=== PATIENT | female | born 1990 | race Two or more races ===

== ENCOUNTER 2019-07-24 10:23 | Inpatient (IN) | payer MEDICARE, OTHER ==
[~2019-07-24] VITALS: Ht 165.1 cm; Wt 63.5 kg
[2019-07-24] MEDS ORDERED: MYCO500T PO (10:44)
[2019-07-24] MEDS ORDERED: CHOL200026 PO (10:44)
[2019-07-24 11:17] LABS: CARBON DIOXIDE 26 mmol/L (21-32); CHLORIDE 100 mmol/L (98-107); CREATININE 0.8 mg/dL (0.6-1.3); GLUCOSE 89 mg/dL (74-106); POTASSIUM 3.7 mmol/L (3.5-5.1); UREA NITROGEN, BLOOD 7 mg/dL (7-18)
[2019-07-24 11:18] LABS: BASOPHILS % (AUTO) 0.2 % (0.0-2.0); ETHANOL < 3 MG/DL (0-0); HEMATOCRIT 42.9 % (31.2-41.9); HEMOGLOBIN 13.9 g/dL (10.9-14.3); LYMPHOCYTES % (AUTO) 12.8 % (20.5-51.5); MEAN CORPUSCULAR HEMOGLOBIN 27.2 uug (24.7-32.8); MEAN CORPUSCULAR HGB CONC 33 g/dL (32.3-35.6); MEAN CORPUSCULAR VOLUME 83.7 fL (75.5-95.3); MONOCYTES # (AUTO) 0.8 K/uL (2.0-10.0); MONOCYTES % (AUTO) 9.5 % (0.0-11.0); NEUTROPHILS # (AUTO) 6.3 K/uL (1.8-8.9); NEUTROPHILS % (AUTO) 77.5 % (38.5-71.5); PLATELET COUNT (AUTO) 226 K/uL (179-408); RED BLOOD CELL COUNT(AUTO) 5.13 MIL/uL (3.63-4.92); WHITE BLOOD COUNT (AUTO) 8.1 K/uL (3.8-11.8)
--- NOTE | 2019-07-24 11:20 | NUR ---
PT IS DEAF & MUTE, AND PRESENTS W/ AMS. PER PT'S PARENTS, PT'S BASELINE MENTATION IS A/OX4, BUT STATES THAT SHE BEGAN TO BE CONFUSED SINCE YESTERDAY AND "WANDERING". PT PRESENTS W/ BRUISING TO THE L WRIST AND FACIAL GRIMACING UPON MOVEMENT OF THE LUE. PT IS ABLE TO SELF-AMBULATE, BUT IS NOTED TO BE WALKING W/ A LIMP ON THE L SIDE AND BRACING HER LUE. VSS.
[2019-07-24 11:23] LABS: ALANINE AMINOTRANSFERASE 11 U/L (14-59); ALKALINE PHOSPHATASE 75 U/L (50-136); ASPARTATE AMINOTRANSFERASE 16 U/L (15-37); BILIRUBIN,DIRECT 0.2 mg/dL (0.0-0.2); TOTAL PROTEIN, SERUM 8.5 g/dL (6.4-8.2)
[2019-07-24 11:25] LABS: ACETAMINOPHEN < 2.0 ug/mL (10-30)
[2019-07-24 11:30] LABS: THYROID STIMULATING HORMONE 1.267 mIU/mL (0.358-3.740)
--- NOTE | 2019-07-24 11:38 | NUR ---
PT TAKEN TO RADIOLOGY FOR CT SCAN.
--- NOTE | 2019-07-24 11:56 | NUR ---
pt back in ER from radiology.
--- NOTE | 2019-07-24 12:12 | NUR ---
pt removed IV access, catheter intact. ER notified. Unable to obtaine urine sample due to lack of pt's cooperation. ER aware.
--- NOTE | 2019-07-24 12:15 | NUR ---
paged [facility] for panel call. awaiting callback. attempt 1.
--- NOTE | 2019-07-24 12:22 | NUR ---
Pt wandering out of room, refusing to walk back to her room. Pt assisted back to room. 1:1 observation for safety precaution.
--- NOTE | 2019-07-24 12:25 | NUR ---
ER MD speaking w/ Rishabh, HARPER, re pt's admission.
--- NOTE | 2019-07-24 14:06 | NUR ---
PT REFUSING VITAL SIGN CHECK. NAD NOTED. PT IS RESTING IN BED.
--- NOTE | 2019-07-24 14:26 | NUR ---
ADMITTING REPORT GIVEN TO LETICIA GUTHRIE.
--- NOTE | 2019-07-24 14:35 | NUR ---
Pt. admitted to [facility], under care of [facility] LI. Belongs List completed
--- NOTE | 2019-07-24 15:40 | NUR ---
28 YEAR OLD FEMALE RECEIVED FROM ER VIA GURNEY TO ROOM 309 FOR AMS .PT IS NOT TALKING AND NOT GIVING ANS TO ANY QUESTION , MADE AWARE,CALL LIGHT WITH IN REACH
--- NOTE | 2019-07-24 17:00 | NUR ---
pt is standing on the night stand and jumped to the bed after patient was repeatedly asked in iraqi and mongolian to come down. Pt proceded to point to the white board in her room and told staff that she was "the devil". patient began to point to the oxygen and vaccum valves and the smoke alarm and said that we were "watching her and recording her". pt refused to comply to sit down calmly on bed after repeatedly telling her to come down. Charge nurse called security to try to convince patient to sit on bed. Pt began to lash out and started screaming and spitting and scratching staff. It required 10 staff members to restrain patient with 4 point restrains to hospital bed and a asha restraint vest in order to restrain patient to bed. House nursing supervisor heat treating was notified and alerted to patients behavior and combativeness. pt is still combative and kicking and spitting at staff. staff had to remove all pillows, sheets, call light, remote control, and headboard from the bed in order to eliminate any possibility patient could hurt herself
[2019-07-24] MEDS ORDERED: LORAZEPAM 2 MG/1 ML VIAL IM ONE (17:30)
[2019-07-24] MEDS ORDERED: diphenhydrAMINE 50 MG/1 ML VIAL IM ONE (17:30)
[2019-07-24] MEDS ORDERED: HALOPERIDOL LACTATE 5 MG/1 ML VIAL IM ONE ×2 (17:30→21:00)
--- NOTE | 2019-07-24 18:00 | NUR ---
per md order pt was given ativan 2mg, haleperidol 5 mg, and benadryl 50 mg IM given at 1800. pt was still acting out and combative at this time. Nursing steel fabricating supervisor called Laurie Mccracken acute care nurse practitioner for pysch evaluation and crisis team evaluation as well. pt is still combative but is able to vocalize complains and is aware of what is going on.
[2019-07-24 20:45] VITALS: BP 87/40
[2019-07-24] MEDS ORDERED: ACETAMINOPHEN 325 MG TABLET PO PRN (21:00)
[2019-07-24] MEDS ORDERED: MAGNESIUM HYDROXIDE 30 ML LIQUID UDC PO PRN (21:00)
[2019-07-24] MEDS ORDERED: Z GUARD REMEDY PASTE 57 GM TUBE TOP PRN (21:00)
[2019-07-24] MEDS ORDERED: ONDANSETRON 4 MG/2 ML VIAL IV PRN (21:00)
--- NOTE | 2019-07-24 23:00 | NUR ---
Received report from outgoing nurse. Resumed care. Patient sleeping during initial rounds with 4 point restraint applied as ordered. No circulation impairment noted. Sitter 1:1 at bedside for safety. No s/s of pain/discomforts. Safety measures and fall precaution maintained.
--- NOTE | 2019-07-24 23:15 | NUR ---
UA specimen obtained via straight cath as ordered. Patient very resistive, tolerated procedure well. Specimen sent to lab.
[2019-07-24 23:41] LABS: *BILIRUBIN,URIN 1+ (NEGATIVE); *COLOR,URINE YELLOW (YELLOW); *KETONES,URINE 4+ (NEGATIVE); *UROBILINOGEN,URINE 0.2 E.U./dl (NORMAL); LEUKOCYTE ESTERASE ,URINE NEGATIVE (NEGATIVE); NITRITE, URINE NEGATIVE (NEGATIVE); UGLUCOSE NEGATIVE (NEGATIVE)
[2019-07-25 00:05] LABS: *BLOOD, URINE TRACE (NEGATIVE); *CLARITY,URINE HAZY (CLEAR)
[2019-07-25 00:06] LABS: *URINE HCG, QUAL NEGATIVE (NEGATIVE); BACTERIA,URINE MODERATE /HPF (NONE SEEN); SQUAMOUS EPITHELIAL CELL,UR MANY /HPF (NONE SEEN)
[2019-07-25 00:13] LABS: *AMPHETAMINE, URINE NEGATIVE (NEGATIVE); *BARBITURATE, URINE NEGATIVE (NEGATIVE); *CANNABINOID, URINE NEGATIVE (NEGATIVE); *COCCAINE, URINE NEGATIVE (NEGATIVE); *OPIATE, URINE NEGATIVE (NEGATIVE); *PHENCYCLIDINE SCREEN,URINE NEGATIVE (NEGATIVE)
[2019-07-25 05:10] VITALS: BP 112/63
--- NOTE | 2019-07-25 05:42 | NUR ---
Shift End Report: Vs stable. Slept good. Sitter 1:1 maintained for safety. No fall/injury. ON 4 point restraint as ordered, released q 2 hours and PRN x 10 minutes with no circulation impairment noted. Good skin/zay care rendered. All needs attended and met. No significant event reported. Continue care as planned.
--- NOTE | 2019-07-25 07:40 | NUR ---
Received patient in bed, confused, asleep able to open eyes to name, with 1:1 sitter at bedside. No signs of distress. All needs met. Safety and fall prevention in place. call light in reach. Bed in low and locked position. Will continue to monitor.
[2019-07-25 07:53] LABS: BASOPHILS # (AUTO) 0.1 K/uL (0.0-8.0); BASOPHILS % (AUTO) 0.6 % (0.0-2.0); EOSINOPHILS # (AUTO) 0.1 K/uL (0.0-0.7); EOSINOPHILS % (AUTO) 1.5 % (0.0-7.0); HEMATOCRIT 40.1 % (31.2-41.9); HEMOGLOBIN 13.2 g/dL (10.9-14.3); LYMPHOCYTES # (AUTO) 0.8 K/uL (20.0-40.0); LYMPHOCYTES % (AUTO) 8.2 % (20.5-51.5); MEAN CORPUSCULAR HEMOGLOBIN 27.4 uug (24.7-32.8); MEAN CORPUSCULAR HGB CONC 33 g/dL (32.3-35.6); MEAN CORPUSCULAR VOLUME 83.2 fL (75.5-95.3); MONOCYTES # (AUTO) 0.6 K/uL (2.0-10.0); MONOCYTES % (AUTO) 5.7 % (0.0-11.0); NEUTROPHILS # (AUTO) 8.2 K/uL (1.8-8.9); PLATELET COUNT (AUTO) 235 K/uL (179-408); RED BLOOD CELL COUNT(AUTO) 4.82 MIL/uL (3.63-4.92); WHITE BLOOD COUNT (AUTO) 9.8 K/uL (3.8-11.8)
[2019-07-25 08:08] LABS: BILIRUBIN,TOTAL 1.1 mg/dL (0.2-1.0); CREATININE 0.7 mg/dL (0.6-1.3); POTASSIUM 3.9 mmol/L (3.5-5.1); TOTAL PROTEIN, SERUM 7.9 g/dL (6.4-8.2)
--- NOTE | 2019-07-25 14:45 | NUR ---
Notifed dr. Keating that patient is very lethargic and hard to wake up. She has not eaten breakfast lunch or dinner the night before. Orders to give bolus of 1L NS
[2019-07-25 15:00] VITALS: BP 99/67
[2019-07-25] MEDS ORDERED: IV NS 1000 ML 1,000 ML IV ONE (15:45)
[2019-07-25 16:57] VITALS: BP 102/68
--- NOTE | 2019-07-25 18:01 | NUR ---
Patient in bed, lethargic, able to open eyes to stimulation, 1:1 sitter at bed side. No signs of distress. All needs met throughout the shift. Safety and fall prevention in place. call light in reach. Bed in low and locked position. Will report to oncoming nurse.
--- NOTE | 2019-07-25 18:31 | NUR ---
Bladder scan done because patient did not urinate all shift. Patient retaining 333ml of urine. Dr. Keating notified.
[2019-07-25 20:19] VITALS: BP 108/59
--- NOTE | 2019-07-25 21:00 | NUR ---
Patient is now awake. Hard of hearing. Sitter at bedside. Calm. No behavioral issues. Sitter was able to feed the patient. Oral care provided. Patient was able to drink fluids with no issues. No acute distress noted. Noted bruising on bilateral arms. Safety initiated. Call light within reach. Will continue to monitor.
--- NOTE | 2019-07-25 21:34 | NUR ---
Patient was able to walk to the bathroom with assists. Patient was able to urinate 650 ml output. Perineal care provided. Sitter at bedside. Will continue to monitor.
[2019-07-26 04:00] VITALS: BP 102/56
--- NOTE | 2019-07-26 05:22 | NUR ---
Patient slept t/o shift. Sitter at bedside. No behavioral issues noted. No acute distress noted. Safety and comfort measures maintained t/o shift. Vital signs stable. All needs met.
[2019-07-26 08:00] VITALS: BP 90/55
--- NOTE | 2019-07-26 14:55 | NUR ---
Walked pt with 1:1 sitter down to lobby for discharge. PIV removed. Spoke with Sen (father) and provided/discussed discharged instructions. Father verbalized understanding of discharge instructions. Psychiatric mental health resources paper also provided to father. Pt stable and nad noted upon discharge.
== END 2019-07-26 15:00 | disposition home or self-care (01) | DRG 91 ==
LOC: ER 10:23 → MEDSURG3 14:30
PROVIDERS: ADMIT Hospitalist; ATTEND Student in an Organized Health Care Education/Training Program
DX: G92 Toxic encephalopathy (principal); R40.2312 Coma scale, best motor response, none, at arrival to emergency department; R40.2212 Coma scale, best verbal response, none, at arrival to emergency department; R40.2142 Coma scale, eyes open, spontaneous, at arrival to emergency department; H91.3 Deaf nonspeaking, not elsewhere classified; S40.022A Contusion of left upper arm, initial encounter; X58.XXXA Exposure to other specified factors, initial encounter; Y93.9 Activity, unspecified; Y92.009 Unspecified place in unspecified non-institutional (private) residence as the place of occurrence of the external cause
CPT/HCPCS: 36415; 70450; 71045; 73030; 73080; 73110; 80307; 80329; 83735; 84100; 84443; 84703; 85025; 85730; 87086; 93005; A4663; C1758; G0378; G0480; G0480-TC; J1200; J1630; J2060; J7030